=== PATIENT | male | born 2005 | race Two or more races ===

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

== ENCOUNTER 2025-03-05 11:21 | Outpatient (AMB) | payer OTHER, SELFPAY ==
--- OUTSIDE RECORDS SUMMARY | 2025-03-05 11:23 | XMS_ITS | Data Portability ---
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 He reports pain and swelling for one week. Performed right auricular hematoma I&D with bolster in office, which patient tolerated well. Patient will return for follow up in 5-7 days for bolster removal. Patient also evaluated by Dr. Cody. 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 Bolster removed. No re accumulation of hematoma noted. He may gradually increase his activity as tolerated. He was advised to call if the hematoma re accumulates. Patient advised to use head gear to prevent future episodes of auricular hematoma. [email or web address] Not available 08/21/2024 13:45:12 Plan of Treatment Reminders Order Date Submit Date Provider Last Modified By Organization Details Last Modified Time Details Appointments None record ed. Lab None record ed. Referral None record ed. Procedures None record ed. Surgeries None record ed. Imaging None record ed. Medication Orders None record ed. Patient TargetsNo targets recorded. Patient InstructionsNo instructions recorded. Reason for Referral None Reported. Problems Name Problem SNOMED Code Status Onset Date Resolution Date Notes Provider Name and Address Organization Details Recorded Time Hematoma of right auricular region [id number] 105 Active 2024 LORETA VINSON PA-C [address] [facility] [address], [place], [phone], [facility] 15:24:34 Problem Notes None recorded. Procedures Surgical History Date Name Laterality Status Provider Name and Address Organization Details Recorded Time Auricular hematoma right I&D w bolster completed LALITHA CODY MD [address] [place] [address], [phone], [facility] 08/14/2024 17:17:37 Imaging Results None recorded. Procedure Notes None recorded. Medical Equipment None Reported. Allergies No known drug allergies Medications Name Sig Start Date Stop Date Status Note LastModified by Organization Details LastModified Time diclofenac 1 % topical gel APPLY 2 TO 3 GRAMS TOPICALLY TO THE AFFECTED AREA TWICE DAILY NEEDED FOR PAIN 08/21 completed Not Available Not Available Not Available Vitals Date Recorded Body height Body mass index (BMI) Body mass index (BMI) [Percentile] Per age and sex Body weight Provider Name and Address Organization Details Last Updated DateTime 08/14/2024 172.72 cm 25.7 kg/m2 74 % 92932.11 g Sandoval Parada [facility] 08/14/2024 12:56:49 Date Recorded Body height Body mass index (BMI) [Percentile] Per age and sex Body weight Provider Name and Address Organization Details Last Updated DateTime 08/21/2024 172.72 cm 73 % 73826.11 g Mariella Su [facility] 08/21/2024 13:32:17 Social History None recorded. Functional Status None recorded. Mental Status None recorded. Family History Nothing Reported. Medical History No medical history recorded. Past Encounters Encounter ID Performer Location Encounter Start Date Encounter Closed Date Diagnosis/Indication Diagnosis SNOMED-CT Code Diagnosis ICD10 Code Diagnosis Note [id number] LORETA VINSON PA-C [facility] [address] [place] [address] 08/14/2024 12:31:47 08/14/2024 13:56:32 Hematoma of right auricular region [id number] S00.431A [id number] PIETRO MILLAN PA-C [facility] [address] [place] [address] 08/21/2024 13:17:11 08/21/2024 13:45:17 Hematoma of right auricular region [id number] S00.431A Health Concerns Section Related Observation LastModified by Organization Detai ls LastModified Time None Recorded Concern Status LastModified by Organization Details LastModified Time None Recorded Advance Directives Directive None Recorded Payers Insurance Date Sequence Insurance Name Policy Number Policy Means Covered Member ID Means Member ID Guarantor Name 08/21/2024 1 [facility] [id number] Fernando Veloz [id number] Fernando Veloz Notes Date Note Type Note Provider Name and Address Organization Details Recorded Time 08/14/2024 text/html ROS as noted in the HPI 18yo male presents for evaluation of ear swelling. He reports ear trauma while wrestling. Endorses swelling and pain for 1 week. Denies drainage or bleeding from this area. No other concerns. 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 He is pleased with the appearance of the right ear. LALITHA CODY MD [address] [place] [address], [phone], [place] - [facility] 08/21/2024 16:37:10
--- OUTSIDE RECORDS SUMMARY | 2025-03-05 11:23 | XMS_ITS | Clinical Summary ---
Author Organization [facility] Address [address] [place] [id number] Phone Care Team Providers Care Abattoir Supervisor Name Role Phone Unavailable Primary Care Provider Unavailabl e Allergies No known active allergies Medications loratadine 10 MG tablet Take 10 mg by mouth daily. Active Vitamin D, Cholecalciferol, 25 MCG (1000 UT) tabletIndications :Encounter for routine child health examination without abnormal findings Take 1,000 Units by mouth daily. 60 tablet 11 06/15/2019 Active Diclofenac Sodium 1 % gel 11/12/2023 Active Active Problems Problem Noted Date Diagnosed Date Hematoma of right auricular region 08/14/2024 Acute pain of left shoulder 01/17/2023 Overview (01/17/2023): 12/12/2022 Ortho evaluation for left shoulder pain. On Meloxicam 7.5 mg BID. Refer to PT. Follow up in 6 weeks. Pes cavus of both feet 01/16/2023 Overview (01/16/2023): EMG normal (09/26/22) Abnormal intentional weight loss 08/14/2021 Overview (08/14/2021): 31lb wt loss in 1 year; diet modification and boxing; reports intentional; denies any GI s/s nor GI disease in family member; deferred labs based on pt firm that wt loss intentional but low yield to obtain labs current BMI 22.5 Assessment & Plan (08/14/2021 4:21 PM EST): 31lb wt loss in 1 year; diet modification and boxing; reports intentional; denies any GI s/s nor GI disease in family member; deferred labs based on pt firm that wt loss intentional but low yield to obtain labs current BMI 22.5 History of COVID-19 11/29/2020 Overview (11/29/2020): 06/21/2020: Covid positive. Allergic rhinitis 06/11/2018 Overview (08/14/2021): responds to Claritin Spring trigger Assessment & Plan (06/16/2020 11:34 AM EST): No issues currently No meds Uses claritin prn Vision problem 06/11/2018 Overview (06/11/2018): Sees eye doctor and wears glasses. Assessment & Plan (08/14/2021 4:22 PM EST): 20/40 OS and 20/70 OD; wears glasses but did not have them on for exam but report optom visit w/in the last year and no changes to vision Assessment & Plan (06/16/2020 12:01 PM EST): Has glasses. Saw ophthal this year Resolved Problems Problem Noted Date Diagnosed Date Resolved Date Anxiety 06/19/2017 12/18/2023 Overview (06/19/2017): Started counseling with Janice 06/28. 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 He saw Dr Patel in Aug 2017 after having been off the med for two years. EEG is mildly abnormal with occasional occipital spikes but he feels the risk is low. No further treatment. If he has another seizure, he should see neurology again and they would probably restart the med. Assessment & Plan (06/16/2020 11:33 AM EST): No issues in years No meds Has not seen neuro in years - FU prn only Encounters Date Type Department Care Team Description 02/10/2025 Telephone [facility] - [address] [id number] Marcela Pham MD Medical Records from Last 3 Months Immunizations Immunization Administration Dates Next Due COVID-19 Vaccine se marco a Alfaro, 12+ years 12/18/2023 DTaP 5 12/25/2007, 5,05/11/2004,03/07,01/07/2004 H1N1 09/13/2009,07/01/2009 HPV Vaccine 9 Valent 04/24/2016,05/11/2015,03/10 Hep A, ped/adol 02/15/2014,01/11/2011 Hep B, ped/adol 05/11/2004,2003,2003 Hib (HbOC) 05/10/2005,05/11/2004,03/07/2004 Hib (PRP-T) 01/07/2004 IPV 12/25/2007, 5,03/07/2004,01/06 Influenza, injectable, quadr ivalent, preservative free 04/25/2022,06/16/2020,06/15/2019,06/11,05/22/2017,04/24/2016,05/11/2015 ,04/21/2014,09/01/2013 Influenza, injectable, trivalent 06/12/2004 MMR 12/25/2007,12/26/2004 Meningococcal B Trumenba 12/18/2023 Meningococcal Conj (Menactra) MCV4P 06/16/2020,0 03/10/2015 Pneumococcal Conjugate 05/10/2005,2003,03/07/2004,01/06 Tdap 03/10/2015 Varicella 12/25/2007,12/26/2004 Family History Medical History Relation Name Comments Hyperlipidemia Father Chandu Hypertension Father Chandu Asthma Half-Brother Seizures Half-Sister Relation Name Status Comments Father Chandu Father: Hyperli pidemia, Hypertension Half-Brother Alive Half brother (P ): Asthma Half-Sister Alive Half sister (P) : Seizure disorder Mother Sagrario Alive Mother: Alive a nd well Other No family histo ry of *Heart Disease, Family history of Diabetes mellitus, No family history of *Sudden /HI under 55, Family history of *Dental caries, Family history of Obesity, Family history of Sudden /HI under age 55, No family history of *CVA/Stroke Social History Tobacco Use Types Packs/Day Years Used Date Smoking Tobacco: Never Smokeless Tobacco: Never Tobacco Cessation:Counseling Given: Yes Alcohol Use Standard Drinks/Week Comments No 0 (1 standard drink = 0.6 oz pur e alcohol) Hunger/Food Answer Date Recorded In the last 12 months, did y ou or your family ever eat less than you felt you should because there wasn't enough money for food? No 12/18/2023 Stable Housing Answer Date Recorded Are you worried that in the next 2 months you may not have stable housing? No 12/18/2023 Transportation Concerns Answer Date Rec orded In the last 12 months, have you or your family ever had to go without healthcare because you didn't have a way to get there? No 12/18/2023 Hazards in Home Answer Date Recorded Think about the place you li ve. Do you have problems with any of the following? Pests (mice or roaches), mold, no/not working smoke detectors, water leaks, no window guards. No 2023 Financing Utilities Answer Date Recorde d In the last 12 months, has t he electric, gas, oil, or water company threatened to shut off your services in your home? No 12/18/2023 Safety at Home Answer Date Recorded Are you or your family worried about feeling saf e in your home? No 12/18/2023 Outside Support Answer Date Recorded Do you feel that you need mo re support from other people or programs to help you care for yourself or your family? No 12/18/2023 Understanding Health Concerns Answer Da te Recorded Do you need help understandi ng your or your child's healthcare needs (diagnosis, medications, plan, etc.)? No 12/18/2023 Financing Health Concerns Answer Date R ecorded In the last 12 months, was t here a time when your child needed to see a doctor or get medications or supplies but could not because of cost? No 12/18/2023 Missing School or Work Answer Date Nirav rded Did you or your child miss s chool or work because of a health problem that could have been avoided? No 12/18/2023 Child Education Answer Date Recorded Do you have concerns about y our/your child's learning or behavior in school, preschool, or daycare? No 12/18/2023 Sex and Gender Information Value Date Recorded Sex Assigned at Male 12/18/2023 11:03 AM EDT Legal Sex Male 4:56 PM EDT Gender Identity Male 12/18/2023 11:03 AM EDT Sexual Orientation Straight 12/18/2023 11 :02 AM EDT Last Filed Vital Signs Vital Sign Reading Time Taken Comments Blood Pressure 111/70 12/18/2023 11:06 AM EDT Pulse 60 12/18/2023 11:06 AM EDT Temperature 36.8 C (98.3 F) 10/06/2024 3:08 PM EST Respiratory Rate 20 07/06/2019 3:10 PM EST Oxygen Saturation 93% 12/19/2010 12:00 AM EDT Inhaled Oxygen Concentration - - Weight 75.9 kg (167 lb 6.4 oz) 10/06/2024 3:08 P M EST Height 172.1 cm (5' 7.75 ) 12/18/2023 11:06 AM E DT Body Mass Index 25.64 12/18/2023 11:06 AM EDT Plan of Treatment Health Maintenance Due Date Last Done Comments COVID-19 Vaccine (5 - 2023-2 5 season) 2024 12/18/2023, 10/26/2021, 01/23/2021, Additional history exists Men B Vaccine (2 of 2 - Trum enba SCDM 2-dose series) 06/19/2024 12/18/2023 DTaP,Tdap,and Td Vaccines (7 - Td or Tdap) 03/10/2025 03/10/2015, 12/25/2007, 05/10/2005, Additional history exists Influenza Vaccines (#1) 2025 04/25/20, 06/16/2020, 06/15/2019, Additional history exists Hepatitis B Vaccines Completed 05/11/2004, 2003, 2003 HIB Vaccines Completed 05/10/2005, 04/14, 03/07/2004, Additional history exists Pneumococcal Vaccine Completed 05/10/2005, 05/11/2004, 03/07/2004, Additional history exists IPV Vaccines Completed 12/25/2007, 08/13, 03/07/2004, Additional history exists MMR Vaccines Completed 12/25/2007, 12/26/2004 Varicella Vaccines Completed 12/25/2007, 12/26/2004 Hepatitis A Vaccines Completed 02/15/2014, 01/12/20 11 HPV Vaccines Completed 04/24/2016, 04/14, 03/10/2015 Meningococcal Vaccine Completed 06/16/2020, 015
--- OUTSIDE RECORDS SUMMARY | 2025-03-05 11:23 | XMS_ITS | Clinical Summary ---
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 Not on idalia e 12/07/2022 Are you concerned about learning? Not on file 12/07/2022 No 12/07/2022 No 12/07/2022 Digital Access Answer Date Recorded No 01/05/2023 No 01/05/2023 No 01/05/2023 Reliable internet access at home? Not on file 01/05/2023 Device with a working camera? Not on file Sex and Gender Information Value Date Recorded Sex Assigned at Not on file Legal Sex Male 11:03 AM EDT Gender Identity Not on file Sexual Orientation Not on file Last Filed Vital Signs Vital Sign Reading Time Taken Comments Blood Pressure 130/78 07/29/2017 2:29 PM EST Pulse 70 07/29/2017 2:29 PM EST Temperature 37.3 C (99.2 F) 07/29/2017 2:29 PM EST Respiratory Rate - - Oxygen Saturation 98% 07/29/2017 2:29 PM EST Inhaled Oxygen Concentration - - Weight 79.3 kg (174 lb 12.8 oz) 07/29/2017 2:29 PM EST Height 167.6 cm (5' 6 ) 07/29/2017 2:29 PM EST Body Mass Index 28.21 07/29/2017 2:29 PM EST Plan of Treatment Health Maintenance Due Date Last Done Comments DEPRESSION SCREENING 2015 SMOKING Hx and SMOKELESS TOBACCO SCREENING 11/03/2016 MENINGOCOCCAL VACCINES (B) (1 of 2 - Standard) 2019 ADOLESCENT UNIVERSAL LIPID SCREENING 11/03/2020 HEPATITIS C SCREENING 11/03/2021 HIV ONE-TIME SCREENING (18-65 YEARS) 11/03/2021 COVID-19 VACCINE ( season) 2024 01/23/2021, 12/30/2020 Adult Td,Tdap Booster 03/10/2025 03/10/2015 COMBINED DTaP,Tdap,Td (7 - Td or Tdap) 03/10/2025 03/10/2015, 12/25/2007, 05/10/2005, Additional history exists HIB VACCINES Completed 05/10/2005, 04/14, 03/07/2004, Additional history exists PNEUMOCOCCAL VACCINES (0-49 years) Aged Out 05/10/2005, 05/11/2004, 03/07/2004, Additional history exists No longer eligible based on patient's age to complete this topic MMR VACCINES Completed 12/25/2007, 12/26/2004 HEPATITIS A VACCINES Completed 02/15/2014, 01/12/20 HPV VACCINES Completed 04/24/2016, 04/14, 03/10/2015 MENINGOCOCCAL VACCINES (ACWY) Completed 06/16/2020, 03/10/2015 Medical Devices Not on file Insurance [employer] HMO POS EPO [facility] POS EPO AENA O POS EPO Care Teams Broomcorn Press Feeder Relationship Specialty Start Date End Date Vernon Jeter MD [address] [place] [address] [place], [place] [id number] PCP - General Pediatrics 06/04/17 Additional Source Comments The information contained in this document represents components of the legal health record. It is not the complete legal health record.[facility]
--- NOTE | 2025-03-05 11:26 | MHC.PC.OV ---
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 Allergies Seasonal Allergies Allergy (Verified 03/05/25 11:39) Itchy Eyes Medication List - Last Reconciled 03/05/25 by Jailyn Taveras CNP No Known Home Meds Tobacco use date assessed: 03/05/25 Dental Screening Dental Screen Date: 03/05/25 Did you have a dental visit in the last 12 months?: No Did you have a dental problem in the last 6 months where you did not have access to dental care?: No Was dental information given to patient?: Yes HPI HPI Comments History of Present Illness Details 27-year-old male presents to establish care. Prior PCP? - [facility] Last office visit/CPE/labs - Few months ago fx right 5th toe Acute issue(s) - None Past Medical History - Myopia (wear glases), fx right 5th toe Surgical History - None Family History - MGM: Dementia Social History - Nonsmoker. Does not vape. Drinks 3-4 mixed drinks once monthly. Denies recreational drug use - Has been making healthy dietary choices. Exercises routinely. Generally sleep well -he is sexually active, in a monogamous relationship, and has no concern for STDs Health maintenance - Last eye exam was a year ago with [facility]. Referred to Ophthalmology for routine eye exam - Last dental visit was 1-2 years ago; encouraged to schedule an appointment with his dentist for routine dental care - Last tetanus vaccine unknown. Will review immunization record from pediatric records - He notes that he is up-to-date on the flu vaccine [facility] Family History (Updated 03/05/25 @ 11:32 by Yomaira Pizarro MA) Maternal Grandmother Dementia Social History Housing: Apartment Alcohol intake: current Patient Tobacco Use Status: Never used Tobacco e-Cigarette/Vaping Use: Never Used Second Hand Smoke Exposure: No service: No Current occupational status: student Current occupation: [employer] Current occupational exposures/hazards: No Cognitive needs: No Hearing needs: No Vision needs: Yes Questionnaire PHQ-9 Over the last 2 weeks, how often have you been bothered by any of the following problems? 1. Little interest or pleasure in doing things: not at all 2. Feeling down, depressed, or hopeless: not at all 3. Trouble falling or staying asleep, or sleeping too much: not at all 4. Feeling tired or having little energy: not at all 5. Poor appetite or overeating: not at all 6. Feeling bad about yourself - or that you are a failure or have let yourself or your family down: not at all 7. Trouble concentrating on things, such as reading the newspaper or watching television: not at all 8. Moving or speaking so slowly that other people could have noticed. Or the opposite - being so fidgety or restless that you have been moving around a lot more than usual: not at all 9. Thoughts that you would be better off or of hurting yourself in some way: not at all Total score: 0 Depression Screening Interpretation: Negative Depression Screening Done: Yes 49501 - PHQ-9 Billing: Yes Source: Developed by Drs. Trae Ordaz, Vi Santos, Oral Peoples and colleagues, with an educational olimpia from [employer]. Thrive Questionnaire Date Thrive assessed: 03/05/25 I am a: Patient What is your living situation today?: I have a steady place to live Within the past 12 months, did the food you bought not last and you didn't have the money to get more?: Never true Within the past 12 months, did you worry whether your food would run out before you got money to buy more?: Never true Do you have trouble paying for medicines?: No Do you have trouble getting transportation to medical appointments?: No Do you have trouble paying your heating and electricity bill?: No Do you have trouble taking care of your child, family member or friend?: No Do you have trouble with day-to-day activities such as bathing, preparing meals, shopping, managing finances, etc.?: No Are you currently unemployed and looking for a job?: No Are you interested in more education?: I choose not to answer this question Please select the resources that you would like help with: None Currently or been in a relationship where the following occur: No concerns reported THRIVE Score: 0 AUDIT C Alcohol Use Questionnaire (AUDIT-C) 1. How often do you have a drink containing alcohol?: Monthly or less 2. How many drinks containing alcohol do you have on a typical day when you are drinking?: 3 or 4 3. How often do you have six or more drinks on one occasion?: Less than monthly Total Score: 3 Score Reviewed/Action Taken: Yes LOCO-7 AMB Questionnaire LOCO-7 Date LOCO - 7 assessed: 03/05/25 Feeling nervous, anxious, or on edge: 1 = Several days Not being able to stop or control worryin = Not at all Worrying too much about different things: 0 = Not at all Trouble relaxin = Not at all Being so restless that it is hard to sit still: 0 = Not at all Becoming easily annoyed or irritable: 0 = Not at all Feeling afraid as if something awful might happen: 0 = Not at all Total LOCO-7 score (0-4 normal; 5-9 mild; 10-14 moderate; 15-21 severe): 1 Source: Developed by Drs. Trae Ordaz, Vi Santos, Oral Peoples and colleagues, with an educational olimpia from [employer]. LOCO-7 Assessment Billing LOCO-7 Assessment Tool: LOCO-7 Assessment 70917 Review of Systems Const Details: Const Denies chills, Denies fatigue, Denies fever(s), Denies headache(s) and Denies weakness ENT Denies dizziness and Denies headache(s) Card Denies chest pain, Denies lightheadedness, Denies dyspnea and Denies other (Palpitations) Resp Denies cough, Denies dyspnea, Denies wheezing and Denies other ( shortness of breath) GI Denies abdominal pain, Denies melena, Denies hematochezia, Denies change in bowel habits, Denies dyspepsia and Denies nausea Denies hematuria and Denies dysuria Musc Denies abnormal gait, Denies myalgias, Denies arthralgias, Denies numbness and Denies tingling Skin/Breast Denies rash, Denies unusual bruising and Denies wounds Neuro Denies abnormal gait, Denies dizziness, Denies headache(s), Denies memory loss, Denies numbness, Denies Sensory deficit (Neuro), Denies tingling and Denies weakness Psych Denies anxiety, Denies depression, Denies memory loss Endo Denies cold intolerance, Denies fatigue, Denies heat intolerance, Denies polydipsia and Denies polyuria Aller/Immun Denies wheezing Physical exam (Primary Care) Depression Screening Interpretation: Negative Thrive Assessment: Date of Thrive Assessment Date Thrive assessed 03/03/25 03/03/25 19:44 Currently or been in a relationship where the following occur: No concerns reported Const Other: General: no acute distress and well developed Nutritional Appearance: well nourished Orientation/consciousness: patient oriented x3 HENMT Head: Yes normocephalic and Yes atraumatic Eyes General: appearance normal, both eyes and all related structures Pupils: Equal, round and reactive pupils present EOM: EOMs intact bilaterally Resp Effort & Inspection: normal respiratory effort Auscultation: clear to auscultation bilaterally Cardio Rate: regular rate Rhythm: regular rhythm Heart sounds: S1 normal heart sound present, S2 normal heart sound present, no gallops, no murmurs and no rubs GI Palpation (GI): No Abdominal aortic bruit present, Soft to palpation, nontender, No hepatosplenomegaly present and No Rebound tenderness present Auscultation: normal bowel sounds General: Yes no CVA tenderness Back/Spine/Pelvis Back: no CVA tenderness Cervical Spine: cervical ROM normal and No Cervical spine tenderness Thoracic/Lumbar Spine: thoraco-lumbar ROM normal, No pain with thoraco-lumbar ROM, No thoracic spinal tenderness and No lumbar spinal tenderness Extrem General: Yes normal to inspection, No edema and No calf tenderness Skin General: warm and dry. Normal skin color. Normal skin turgor Lesions: no lesions Rashes: no rashes Trauma: no lacerations or abrasions Wounds: no wounds Nails: normal Neuro General: patient oriented x3, gait normal and no focal neuro deficit Cranial nerves: Yes Equal, round and reactive pupils present Cognition (Neuro): normal cognition Gait exam (Neuro): Normal gait present Sensory Exam: No Sensory deficit (Neuro) Psych Appearance: grossly normal Affect: normal affect Attitude: cooperative Thought process: Normal thought process present Coding Level of Care Code New Pt Prev Care 18-39yr([id number] Diagnoses Normal physical examination, routine Z00.00 Eye exam, routine Z01.00 Laboratory tests ordered as part of a complete physical exam (CPE) Z00.00 Additional Codes LOCO-7 Assessment Billing - LOCO-7 Assessment Tool: LOCO-7 Assessment 60143 ([id number]) PHQ-9 - 84464 - PHQ-9 Billing: Yes ([id number]) Assessment & Plan Assessment & Plan (1) Normal physical examination, routine: Code(s): Z00.00 - Encounter for general adult medical examination without abnormal findings Category: Medical Plan: No significant functional limitation noted. Healthy diet and routine exercise encouraged. Perform lab work and follow-up for a telehealth visit in 2-4 weeks for labs review. Return sooner with symptoms or concerns. Verbalized understanding and agreed with the plan. (2) Eye exam, routine: Code(s): Z01.00 - Encounter for examination of eyes and vision without abnormal findings Category: Medical Plan: Last eye exam was a year ago with [facility]. Referred to Ophthalmology for routine eye exam. (3) Laboratory tests ordered as part of a complete physical exam (CPE): Code(s): Z00.00 - Encounter for general adult medical examination without abnormal findings Category: Medical Plan: Fasting labs ordered as part of a complete physical exam. Advised to fast for at least 10 hours before getting labs drawn. May drink water Verbalized understanding and agreed with treatment plan. Orders: Orders Lipid Panel Today Z00.00 - Encounter for general adult medical examination without abnormal findings TSH reflex Free T4 Today Z00.00 - Encounter for general adult medical examination without abnormal findings Vitamin D 25-OH Total Today Z00.00 - Encounter for general adult medical examination without abnormal findings UA CC w/rflx Micro + Cult Today Z00.00 - Encounter for general adult medical examination without abnormal findings Complete Blood Count Auto Diff Today Z00.00 - Encounter for general adult medical examination without abnormal findings Comprehensive [place]. Panel Fast Today Z00.00 - Encounter for general adult medical examination without abnormal findings Microalbumin, Random (w Creat) Today Z00.00 - Encounter for general adult medical examination without abnormal findings
[2025-03-05 11:32] VITALS: BP 116/68; PULSE 71; RESP 18; TEMP 36.7; O2SAT 97; BMI 25.6
== END 2025-03-05 11:55 | disposition home or self-care (01) ==
LOC: HO.HMCFM 11:21
PROVIDERS: PCP Nurse Practitioner Family; Visit Provider Nurse Practitioner Family
DX: Z00.00 Encounter for general adult medical examination without abnormal findings (principal); Z01.00 Encounter for examination of eyes and vision without abnormal findings

== ENCOUNTER → 2025-03-05 11:21 | Outpatient (BNVA) | payer OTHER, SELFPAY | PROVIDERS: PCP Nurse Practitioner Family; Visit Provider Nurse Practitioner Family | DX: Z00.00 Encounter for general adult medical examination without abnormal findings (principal) | CPT/HCPCS: 96127 ==

== ENCOUNTER 2025-03-12 13:46 | Outpatient (REF) | payer OTHER, SELFPAY ==
--- OUTSIDE RECORDS SUMMARY | 2025-03-12 13:48 | XMS_ITS | Clinical Summary ---
Author Organization [facility] Address [address] [place] [address] Phone Care Team Providers Care Medical Coding Auditor Name Role Phone Vernon Jeter MD Primary [...] on file Insurance [employer] HMO POS EPO [facility] POS EPO [employer] O POS EPO Care Teams Medical Coding Auditor Relationship Specialty Start Date End Date Vernon Jeter MD [address] [place] [address] [place], [place] [phone] PCP - General Pediatrics 06/04/17 Additional Source Comments The information contained in this document represents components of the legal health record. It is not the complete legal health record.[facility]
--- OUTSIDE RECORDS SUMMARY | 2025-03-12 13:48 | XMS_ITS | Clinical Summary ---
Author Organization [facility] Address [address] [place] [id number] Phone Care Team Providers Care Project Management Engineer Name Role Phone Unavailable Primary Care Provider [...] Type Department Care Team Description 02/10/2025 Telephone [facility] - [address] [id number] Marcela Pham MD Medical Records [...] Diabetes mellitus, No family history of *Sudden /ME under 55, Family history of *Dental caries, Family history of Obesity, Family history of Sudden /ME under age 55, No family history of [...]
[2025-03-12 13:57] LABS: MANUAL DIFF FLAG NO
[2025-03-12 14:14] LABS: Hematocrit 42.7 % (42.0-52.0); Hemoglobin 14.2 g/dl (14.0-18.0); Imm Gran Abs Auto 0.01 X10*3/uL (0.00-0.03); Imm Gran Pct Auto 0.1 % (0.0-0.4); Lymphocytes Absolute Auto 2.1 X10*3/uL (1.2-4.9); Mean Corpuscular HGB Conc 33.3 g/dl (31.0-36.0); Mean Corpuscular Hemoglobin 30.7 pg (27.0-33.0); Mean Corpuscular Volume 92.2 fL (80.0-98.0); NRBC Abs Auto 0.000 X10*3/uL (0.0-0.012); NRBC Pct Auto 0.0 /100WBC (0.0-0.2); Platelet Count 274 X10*3/uL (160-400); Red Blood Count 4.63 X10*6/uL (4.60-5.80); White Blood Count 7.6 X10*3/uL (4.8-10.8)
[2025-03-12 14:58] LABS: Appearance Urine Clear; Glucose Urine UA Negative (Negative); PH 7.0 (5.0-9.0); Specific Gravity - Urine 1.020 (1.005-1.025)
[2025-03-12 15:08] LABS: Alanine Aminotransferase 17 U/L (0-40); Albumin Level 4.6 g/dL (3.5-5.0); Alkaline Phosphatase 92 U/L (39-117); Anion Gap 10 (12-20); Aspartate Amino Transferase 19 U/L (5-37); Blood Urea Nitrogen 12 mg/dL (9-16); Calcium 9.2 mg/dL (8.4-10.2); Carbon Dioxide 28 mmol/L (22-29); Chloride 106 mmol/L (96-108); Cholesterol 147 mg/dL (<200); Estimated Glomerular Filt Rate > 60; HDL Cholesterol 61 mg/dL (>40); Potassium 4.1 mmol/L (3.3-5.1); Sodium 140 mmol/L (135-145); Total Protein 7.5 g/dL (6.5-8.0); Triglycerides 32 mg/dL (<150)
[2025-03-12 15:25] LABS: Microalbum/Creatinine Ratio Ur 3.5 ug/mg cr (<30)
== END 2025-03-12 13:47 | disposition home or self-care (01) ==
LOC: HO.LAB 13:46
PROVIDERS: PCP Nurse Practitioner Family; Visit Provider Nurse Practitioner Family
DX: Z00.00 Encounter for general adult medical examination without abnormal findings (principal)
CPT/HCPCS: 36415; 80053; 80061; 81003; 82043; 82306; 82570; 84443; 85025